=== PATIENT | female | born 1960 | race Caucasian/White ===

== ENCOUNTER 2017-05-19 07:20 | Emergency (ER) | payer BC, OTHER ==
[2017-05-19 07:30] VITALS: BP 154/90
--- NOTE | 2017-05-19 07:45 | UC ---
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 - History of Current Complaint Chief Complaint: UCGeneralIllness Stated Complaint: THROAT COMPLAINT Time Seen by Provider: 05/19/17 07:33 Hx Obtained From: Patient Hx Last Menstrual Period: IN MENOPAUSE, LAST MARCH JULY 2013 Onset/Duration: Gradual Onset, Lasting Hours Timing: Constant Severity Initially: Mild Severity Currently: Moderate Pain Intensity: 6 Pain Scale Used: 0-10 Numeric Character: Cough: Nonproductive Aggravating Factors: Nothing Alleviating Factors: Nothing - Allergies/Home Medications Allergies/Adverse Reactions: Allergies Allergy/AdvReac Type Severity Reaction Status Date / Time No Known Allergies Allergy Verified 05/19/17 07:30 PMH/Surg Hx/FS Hx/Imm Hx Previously Healthy: Yes Cardiovascular History: Hypertension - Surgical History Surgical History: Yes Surgery Procedure, Year, and Place: c-sect, cyst on fallopian tube - Family History Known Family History: Positive: Hypertension - Social History Alcohol Use: Rare Substance Use Type: None Smoking Status (MU): Never Smoked Tobacco - Immunization History Most Recent Influenza Vaccination: december 2014 Review of Systems Constitutional: Negative Skin: Negative Eyes: Negative ENT: Sore Throat Respiratory: Negative Cardiovascular: Negative Gastrointestinal: Vomiting Genitourinary: Negative Motor: Negative Neurovascular: Negative Musculoskeletal: Negative Neurological: Negative Psychological: Negative Is Patient Immunocompromised?: No All Other Systems Reviewed And Are Negative: Yes Physical Exam Triage Information Reviewed: Yes Appearance: Well-Appearing, No Pain Distress, Well-Nourished Vital Signs: Initial Vital Signs Temp 97.6 F 05/19/17 07:27 Pulse 100 05/19/17 07:27 Resp 18 05/19/17 07:27 BP 154/90 05/19/17 07:27 Pulse Ox 98 05/19/17 07:27 Vital Signs Reviewed: Yes Eyes: Positive: Conjunctiva Clear ENT: Positive: Hearing grossly normal, Pharynx normal, Tonsillar swelling, Uvula midline. Negative: Nasal congestion, Nasal drainage, Tonsillar exudate, Trismus, Muffled voice Neck: Positive: Supple, Nontender, Enlarged Nodes @ - ant cervical Respiratory: Positive: Lungs clear, Normal breath sounds, No respiratory distress, No accessory muscle use Cardiovascular: Positive: RRR, No Murmur Musculoskeletal: Positive: ROM Intact, No Edema Neurological: Positive: Alert Psychological Exam: Normal Skin Exam: Normal UC Diagnostic Evaluation - Laboratory Pertinent Lab Values Are: WNL Except: - strep (+) O2 Sat by Pulse Oximetry: 98 - normal/not hypoxic Respiratory Course/Dx - Differential Dx/Diagnosis Provider Diagnoses: strep throat Discharge - Sign-Out/Discharge Documenting (check all that apply): Discharge - Discharge Plan Condition: Stable Disposition: HOME Prescriptions: Amoxicillin PO (*) [Amoxicillin 875 MG (*)] 875 mg PO BID #20 tab Fluconazole 150 MG (NF) [Diflucan 150 mg (NF)] 150 mg PO ONCE #1 tab Patient Education Materials: Strep Throat (ED) Forms: *Work Release Referrals: Saad Sigala DO [Primary Care Provider] - 4 Days (if not better) Additional Instructions: rest fluids tylenol or advil if needed
== END 2017-05-19 07:58 | disposition home or self-care (01) ==
LOC: UCCORT 07:20
DX: J02.0 Streptococcal pharyngitis (principal); Z02.89 Encounter for other administrative examinations; I10 Essential (primary) hypertension
CPT/HCPCS: 87651; 99212; G0463

== ENCOUNTER 2019-05-21 06:24 | Day surgery (SDC) | payer BC, OTHER ==
[~2019-05-21 06:24] MED LIST: Buffered Lidocaine 1% SYRIN* 1 ML/SYRINGE INTRADERM ONE; Lactated Ringers 1000 ML Bag* 1,000 ML IV SCH
[2019-05-21] MEDS ORDERED: Lidocaine 2.5%/Prilocain 2.5%* 5 GM TUBE ONE (06:54)
[2019-05-21] MEDS ORDERED: ceFAZolin 2 GM PREMIX in ORs 2 GM/50 ML BAG ONE (06:54)
[2019-05-21] MEDS ORDERED: Lidocaine 1% INJ* 10 MG/ML 30 ML SDV ONE (07:53)
[2019-05-21] MEDS ORDERED: Bupivacaine 0.5%* 50 ML MDV VIAL ONE (07:53)
[2019-05-21] MEDS ORDERED: fentaNYL* 50 MCG/ML 2 ML VIAL (100 MCG VIAL) ONE (13:06)
[2019-05-21] MEDS ORDERED: Propofol* 10 MG/ML 20 ML BTL ONE (13:06)
[2019-05-21] MEDS ORDERED: Glycopyrrolate IV* 0.2 MG/ML 1 ML VIAL ONE (13:07)
[2019-05-21] MEDS ORDERED: Succinylcholine* 20 MG/ML 10 ML VIAL ONE (13:07)
[2019-05-21] MEDS ORDERED: Rocuronium* 10 MG/ML VIAL ONE (13:14)
[2019-05-21] MEDS ORDERED: Midazolam* 1 MG/ML 2 ML VIAL (2 MG) ONE (13:33)
[2019-05-21] MEDS ORDERED: Ondansetron INJ* 2 MG/ML VIAL ONE (13:34)
[2019-05-21] MEDS ORDERED: Dexamethasone IV* 4 MG/ML 1 ML (4 MG) ONE (13:34)
[2019-05-21] MEDS ORDERED: Sevoflurane* BOTTLE ONE (14:07)
[2019-05-21] MEDS ORDERED: Sugammadex * 500 MG/5 ML VIAL IV PUSH ONE (15:41)
--- NOTE | 2019-05-21 16:54 | BRIEFOPN ---
Brief Operative/Procedure Note - Operation Details Pre-Op Diagnosis: Right breast cancer Post-Op Diagnosis: Same Procedures: Right lumpectomy with needle localization, right sentinel lymph node biopsy Surgeon(s)/Proceduralists: Justa Hickey. Vacuum Forming Machine Operator: Dalton GRIDER Anesthesia: General Estimated Blood Loss: 30ml Findings: Right breast tissue removed with clip and wire. Two sentinel lymph nodes Specimen(s)/Culture(s) Description: Right breast cancer, sentinel lymph nodes Complications: None. No drains.
--- NOTE | 2019-05-21 16:58 | OP ---
Operative Report - Blank - Operative Report Date of Operation: 05/21/19 Note: PRE-OP DX: Right breast cancer POST-OP DX: Same PROCEDURE: Right lumpectomy with needle localization and right sentinel lymph node biopsy SURGEON: Justa Hickey MD CLEANING VALIDATION CONSULTANT: Ben GRIDER ANESTHESIA: General EBL: 30 ml FINDINGS: Right breast tissue, mammography confirmed specimen contained wire and clip. 2 sentinel lymph nodes INDICATION: Clare Roberts is a 59 year-old woman with a history of hypertension and anxiety who was found to have a right breast nodule on screening mammography. 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 Lumpectomy with radiation and mastectomy were discussed. She elected to for lumpectomy. Risks were discussed including but not limited to bleeding, infection, seroma or hematoma. We also discussed the epigenetic mapping research study, and she agreed to participate. DESCRIPTION: Prior to going to the operating room, the patient was brought to radiology for needle localization of the right breast mass with completion mammogram. She also underwent nuclear medicine sentinel lymph node scan. The patient was then brought to the OR and placed in the supine position on the OR table. SCDs were placed. The patient was warmed. Cefazolin 2 g was given. General anesthesia was administered. The right breast and axilla were prepped and draped in the usual sterile fashion. A timeout was called confirming the patient's name, date of , and procedure. A mix of Marcaine 0.5% and lidocaine 1% was injected around the wire. An ellipitical incision was made with a scalpel around the wire. The incision was taken down through the subcutaneous tissue to the breast tissue using electrocautery. A cone of tissue was taken around the wire. The specimen was oriented and sent for mammography. Imaging confirmed adequate tissue around the biopsy clip and wire. The specimen was then sent to pathology. On palpation of the cavity, there were no palpable abnormalities. The cavity was irrigated, and hemostasis was achieved with electrocautery. The wound was closed with interrupted 3-0 Vicryl dermal sutures. The skin was closed with a running 4-0 Monocryl. Next, gloves were changed and new instruments were used for the sentinel lymph node biopsy. An axillary incision in the skin crease was made with a scalpel after injecting Marcaine and lidocaine. Electrocautery was used to divide the subcutaneous tissue. The Navigator was used to identify radioactive lymph nodes. Mitchell lymph node 1 had a count of 650 in situ. It was dissected out using electrocautery. The ex vivo count was 578. Mitchell lymph node 2 had an in situ count of 1003. The ex vivo count was 1193. All significantly radioactive nodes were removed. The axillary bed count was 11. The axillary cavity was irrigated, and hemostasis was achieved with electrocautery. The incision was closed with interrupted 3-0 Vicryl sutures in the dermis. The skin was closed with a running 4-0 Monocryl. Needle and sponge counts were correct. Steri-Strips and sterile gauze were placed over both incisions. The patient was extubated and brought to recovery in stable condition. CC: Ingrid GRIDER
[2019-05-21 17:14] VITALS: BP 140/85
== END 2019-05-21 17:24 | disposition home or self-care (01) ==
LOC: OR 06:24
PROVIDERS: ATTEND Surgery Surgical Critical Care
DX: C50.411 Malignant neoplasm of upper-outer quadrant of right female breast (principal); I10 Essential (primary) hypertension; E66.01 Morbid (severe) obesity due to excess calories; F32.9 Major depressive disorder, single episode, unspecified
CPT/HCPCS: 78195; 81025; 88307; 88342; A9270-GY; A9541; J0330; J0690; J1100; J2250; J2405; J2704; J3010; J3490